=== PATIENT | male | born 2000 | race Caucasian/White ===

== ENCOUNTER 2018-04-10 16:29 | Emergency (ER) | payer MEDICAID, OTHER ==
[2018-04-10] MEDS: LORAZEPAM 1 MG TAB PO (16:55)
== END 2018-04-10 17:30 | disposition home or self-care (01) ==
LOC: E/R 16:29
DX: Z76.0 Encounter for issue of repeat prescription (principal); F13.239 Sedative, hypnotic or anxiolytic dependence with withdrawal, unspecified; F17.210 Nicotine dependence, cigarettes, uncomplicated
CPT/HCPCS: 99283; Z7502